=== PATIENT | female | born 1960 | race Caucasian/White ===

== ENCOUNTER → 2017-04-03 | Outpatient (CLI) | payer OTHER ==
[~2017-04-03] MED LIST: MVI
== END ==
LOC: MC.RAD 14:04
DX: Z12.31 Encounter for screening mammogram for malignant neoplasm of breast (principal)

== ENCOUNTER → 2018-12-30 | Outpatient (CLI) | payer BC | LOC: COL.RAD 14:39 | DX: R22.0 Localized swelling, mass and lump, head (principal) | CPT/HCPCS: Q9967 ==